=== PATIENT | female | born 1960 | race Caucasian/White ===

== ENCOUNTER 2016-07-23 13:56 | Emergency (ER) | payer MEDICAID ==
[2015-10-24 14:54] VITALS: BMI 24.0
[~2016-07-23 13:56] MED LIST: ALDACTAZIDE 25/1 TAB PO; ARAVA10 MG PO; BENADRYL25 MG PO; BENTYL 20 MG TA20 MG PO; BENTYL10 MG PO; CLARITIN-D1 TAB.SR1 PO; CLEOCIN HCL150 MG PO; COUMADIN5 MG PO; DEMEROL50 MG; DILAUDID4 MG PO; DILAUDID8 MG PO; ESTRACE 0.5 MG0.5 MG PO; ESTRACE1 MG PO; FLUTICASONE PRO16 GM NASAL; HYDROCHLOROTHIA25 MG PO; HYDROCODONE-APA1 TAB PO; IMURAN50 MG PO; NEURONTIN600 MG PO; NEXIUM20 MG PO; PHENERGAN25 M1 PO; PREVACID30 MG PO; PROTONIX40 MG PO; SOMA350 MG PO; VALTREX500 MG PO; VANCOMYCIN 750750 MG IV; ZANAFLEX4 MG PO; ZANTAC150 MG PO
[2016-07-23 15:12] LABS: BASOPHILS 0.3 % (0.0-2.0); EOSINOPHILS 3.4 % (0-7); HEMATOCRIT 34.2 % (36.0-48.0); HEMOGLOBIN 10.1 g/dL (12-16); IMMATURE GRANULOCYTES 0.1 % (0-5); LYMPHOCYTES 22.7 % (15-50); MCHC 29.5 g/dL (31.0-37.0); MCV 77.9 fL (80.0-100.0); MEAN PLATELET VOLUME 9.1 fL (7.4-10.4); MONOCYTES 6.9 % (2-11); NEUTROPHILS 66.6 % (40-80); RBC 4.39 10x6/uL (4.00-5.40); RDW 18.1 % (11.5-14.5); WBC 7.4 10x3/uL (4.8-10.8)
[2016-07-23 15:15] LABS: PLATELET COUNT 428 10x3/uL (130-400)
[2016-07-23 15:24] LABS: APPEARANCE CLEAR (CLEAR); BILIRUBIN NEGATIVE (NEGATIVE); COLOR YELLOW (YELLOW); GLUCOSE NEGATIVE (NEGATIVE); KETONE NEGATIVE (NEGATIVE); LEUKOCYTE ESTERASE NEGATIVE (NEGATIVE); NITRITE NEGATIVE (NEGATIVE); PROTEIN NEGATIVE (NEGATIVE); UROBILINOGEN NORMAL (NORMAL)
[2016-07-23 15:34] LABS: ALBUMIN 3.6 g/dL (3.4-5.0); ALKALINE PHOSPHATASE 159 U/L (46-116); ALT (SGPT) 35 U/L (10-68); BILIRUBIN - TOTAL 0.25 mg/dL (0.2-1.3); CALC OSMOLALITY 276 mosm/kg (275-300); CALCIUM 9.2 mg/dL (8.5-10.1); CARBON DIOXIDE 19.3 mmol/L (21.0-32.0); CHLORIDE - SERUM 105 mmol/L (98-107); CREATININE - SERUM 1.2 mg/dL (0.6-1.3); GLUCOSE 75 mg/dL (74-106); POTASSIUM - SERUM 3.1 mmol/L (3.5-5.1); SODIUM 140 mmol/L (136-145); UREA NITROGEN 11 mg/dL (7-18); eGFR NON AFRICAN AMERICAN 50 mL/min (90-120)
[2016-07-23 15:39] LABS: UDS - AMPHET NEGATIVE QUAL (NEGATIVE); UDS - BARB POSITIVE QUAL (NEGATIVE); UDS - BENZO POSITIVE QUAL (NEGATIVE); UDS - COCAINE NEGATIVE QUAL (NEGATIVE); UDS - METH NEGATIVE QUAL (NEGATIVE); UDS - OPIATE NEGATIVE QUAL (NEGATIVE); UDS - PCP NEGATIVE QUAL (NEGATIVE); UDS - THC NEGATIVE QUAL (NEGATIVE)
[2016-07-23 15:47] LABS: AMYLASE - SERUM 50 U/L (25-115); C-REACTIVE PROTEIN 5.2 mg/dL (0.0-0.9); LIPASE 154 U/L (73-393); PRO BNP 104 pg/mL (0-125); THYROID STIMULATING HORMONE 2.79 uIU/mL (0.36-3.74)
[2016-07-23 15:52] LABS: TROPONIN-I < 0.017 ng/mL (0.000-0.060)
[2016-08-24] MEDS ORDERED: HYSINGLA ER30 MG PO (08:26)
[2016-08-24] MEDS ORDERED: MAGNESIUM OXID250 MG PO (08:27)
[2016-08-24] MEDS ORDERED: VALIUM5 MG PO (08:28)
[2016-08-24] MEDS ORDERED: CORTEF10 MG PO (08:29)
== END 2016-07-23 21:10 | disposition home or self-care (01) ==
LOC: D.ER 13:56
PROVIDERS: Family Medicine
DX: R53.1 Weakness (principal); R11.10 Vomiting, unspecified; F45.9 Somatoform disorder, unspecified; D64.9 Anemia, unspecified; K21.9 Gastro-esophageal reflux disease without esophagitis; G40.909 Epilepsy, unspecified, not intractable, without status epilepticus

== ENCOUNTER 2016-08-27 11:11 | Inpatient (IN) | payer MEDICAID ==
[~2016-08-27] VITALS: Ht 162.6 cm; Wt 76.4 kg
[2016-08-27] VITALS (9 sets, daily range): BP systolic 128–177; BP diastolic 64–111; Ht 162.6 cm; Wt 76.4 kg
[~2016-08-27 11:11] MED LIST changes: +CORTEF10 MG PO; +HYSINGLA ER30 MG PO; +MAGNESIUM OXID250 MG PO; +VALIUM5 MG PO
[2016-08-27] MEDS ORDERED: OMEPRAZOLE20 M1 PO (11:58)
[2016-08-27 12:36] LABS: APPEARANCE HAZY (CLEAR); COLOR YELLOW (YELLOW); SPECIFIC GRAVITY 1.015 (1.005-1.020)
[2016-08-27 12:37] LABS: BACTERIA MODERATE /hpf (NONE SEEN); BILIRUBIN NEGATIVE (NEGATIVE); GLUCOSE NEGATIVE (NEGATIVE); KETONE NEGATIVE (NEGATIVE); LEUKOCYTE ESTERASE NEGATIVE (NEGATIVE); MUCUS <1+ /lpf (NONE SEEN); NITRITE NEGATIVE (NEGATIVE); PROTEIN NEGATIVE (NEGATIVE); RED CELLS - URINE 0-5 /hpf (0-5); UROBILINOGEN NORMAL (NORMAL); WHITE CELLS - URINE 0-5 /hpf (0-5)
[2016-08-27 12:38] LABS: HYALINE CAST 0-5 /lpf (NONE SEEN)
[2016-08-27 13:44] LABS: CALCIUM 8.6 mg/dL (8.5-10.1); CARBON DIOXIDE 28.3 mmol/L (21.0-32.0); POTASSIUM - SERUM 3.3 mmol/L (3.5-5.1)
[2016-08-27 13:45] LABS: APTT 25.4 SECONDS (22.8-39.4); INR 0.97 (0.85-1.17); PROTIME 12.7 SECONDS (11.6-15.0)
[2016-08-27 14:32] LABS: BASOPHILS 0.2 % (0.0-2.0); EOSINOPHILS 2.1 % (0-7); HEMATOCRIT 30.2 % (36.0-48.0); HEMOGLOBIN 8.7 g/dL (12-16); IMMATURE GRANULOCYTES 0.4 % (0-5); LYMPHOCYTES 24.5 % (15-50); MCH 22.4 pg (26.0-34.0); MCHC 28.8 g/dL (31.0-37.0); MCV 77.6 fL (80.0-100.0); MEAN PLATELET VOLUME 9.1 fL (7.4-10.4); MONOCYTES 5.3 % (2-11); NEUTROPHILS 67.5 % (40-80); PLATELET COUNT 505 10x3/uL (130-400); RBC 3.89 10x6/uL (4.00-5.40); RDW 18.3 % (11.5-14.5); WBC 9.1 10x3/uL (4.8-10.8)
--- NOTE | 2016-08-27 14:59 | NUR ---
[id number] DR. CRAIG LEAVES OR, DR. GARCIA IS PAGED FOR PORT PLACEMENT
--- NOTE | 2016-08-27 15:12 | NUR ---
DR. GARCIA STARTS PORT PLACEMENT
--- NOTE | 2016-08-27 16:08 | NUR ---
RECIEVED REPORT FROM MEHDI SANCHEZ.
--- NOTE | 2016-08-27 17:57 | NUR ---
PATIENT SAID SHE IS NOT ABLE TO TOLERATE HER PO MEDS AT THIS TIME. BUT STATED SHE WILL LET ME KNOW WHEN SHE CAN.
--- NOTE | 2016-08-27 19:30 | NUR ---
RECIEVED SHIFT REPORT. PT IS LYING IN BED. ALERT AND ORIENTED AND ABLE TO VERBALIZE NEEDS. IV IS PATENT AND FLUIDS ARE RUNNING PER ORDER. SCD'S ON. DRESSING TO LEFT SHOULDER C/D/I. SLING ON. ICE ON AT THIS TIME. PT STATES PAIN IS 4/10 WITH MEMBERSHIP DIRECTOR PUMP. PT IS AMBULATORY WITH ASSISTANCE. NO NEEDS ARE VERBALIZED AT THIS TIME. WILL CONTINUE TO MONITOR. SIDE RAILS ARE UP X 2. BED IS IN LOWEST POSITION. CALL LIGHT IS WITHIN REACH.
--- NOTE | 2016-08-27 20:58 | NUR ---
SHIFT ASSESSMENT COMPLETED. NIGHT MEDS GIVEN WITH NO PROBLEMS. NO NEEDS ARE VOICED. WILL MONITOR. SIDE RAILS X 2. BED LOW. CALL LIGHT IN REACH.
[2016-08-28 04:00] VITALS: BP 139/83
[2016-08-28 08:38] VITALS: BP 136/80
[2016-08-28 13:04] VITALS: BP 134/78
[2016-08-28 13:15] LABS: HEMATOCRIT 24.9 % (36.0-48.0); MCH 22.3 pg (26.0-34.0); MCHC 28.5 g/dL (31.0-37.0); MCV 78.3 fL (80.0-100.0); MEAN PLATELET VOLUME 8.5 fL (7.4-10.4); RBC 3.18 10x6/uL (4.00-5.40); RDW 18.2 % (11.5-14.5); WBC 8.3 10x3/uL (4.8-10.8)
[2016-08-28 13:26] LABS: HEMOGLOBIN 7.1 g/dL (12-16)
[2016-08-28 14:10] LABS: ANION GAP 12.4 mmol/L (8-16); CARBON DIOXIDE 28.6 mmol/L (21.0-32.0)
[2016-08-28 17:07] VITALS: BP 118/77
--- NOTE | 2016-08-28 19:30 | NUR ---
RECIEVED SHIFT REPORT. PT IS LYING IN BED. ALERT AND ORIENTED AND ABLE TO VERBALIZE NEEDS. IV IS PATENT AND BLOOD INFUSING AT THIS TIME. PT IS AMBULATORY BUT WAS INSTRUCTED TO CALL FOR ANY ASSISTANCE NEEDED. DRESSING TO LEFT SHOULDER C/D/I AND SLING ON. SCD'S ON. O2 @ 3 PER NASAL CANNULA. PT STATES PAIN IS 10/10. NO NEEDS ARE VERBALIZED AT THIS TIME. WILL CONTINUE TO MONITOR. SIDE RAILS ARE UP X 2. BED IS IN LOWEST POSITION. CALL LIGHT IS WITHIN REACH.
--- NOTE | 2016-08-28 20:55 | NUR ---
PRBC'S FINISHED AT THIS TIME AND TUBE FLUSHING. VSS. WILL MONITOR. SIDE RAILS X 2. BED LOW. CALL LIGHT IN REACH.
--- NOTE | 2016-08-28 21:03 | NUR ---
SHIFT ASSESSMENT COMPLETED. NIGHT MEDS GIVEN WITH NO PROBLEMS. PT C/O NAUSEA. ADMINISTERED PRESCRIBED PRN PHENERGAN PER ORDER. DENIES FURTHER NEEDS. WILL MONITOR. SIDE RAILS X 2. BED LOW. CALL LIGHT IN REACH.
[2016-08-29] VITALS: BP 133/70
--- NOTE | 2016-08-29 | NUR ---
GAVE BOLUS OF DILAUDID VIA CONSTRUCTION AND MAINTENANCE INSPECTOR PUMP PER ORDER, PER PT REQUEST FOR PAIN. WILL CONTINUE TO MONITOR FOR NEEDS.
[2016-08-29 04:00] VITALS: BP 128/69
--- NOTE | 2016-08-29 07:30 | NUR ---
REPORT RECEIVED FROM DAMPER WORKER NURSE. CALL LIGHT IN REACH.
--- NOTE | 2016-08-29 09:00 | NUR ---
ASSESSMENT COMPLETED. PERCOCET AND PHENERGAN PO WITH AM MEDS. REFUSES SCDs AT THE TIME. PASSWORD OBTAINED. CALL LIGHT IN REACH. WILL CONTINUE WITH PLAN OF CARE.
[2016-08-29 09:09] VITALS: BP 147/91
--- NOTE | 2016-08-29 11:10 | NUR ---
DILAUDID METAL FABRICATOR HELPER BOLUS GIVEN PER PATIENT REQUEST FOR BREAKTHROUGH PAIN.
[2016-08-29 11:46] LABS: HEMATOCRIT 29.3 % (36.0-48.0); MCH 23.8 pg (26.0-34.0); MCHC 29.4 g/dL (31.0-37.0); MEAN PLATELET VOLUME 8.9 fL (7.4-10.4); RBC 3.62 10x6/uL (4.00-5.40); RDW 17.9 % (11.5-14.5); WBC 7.5 10x3/uL (4.8-10.8)
[2016-08-29 11:50] LABS: CALCIUM 7.9 mg/dL (8.5-10.1); CARBON DIOXIDE 26.3 mmol/L (21.0-32.0); CHLORIDE - SERUM 110 mmol/L (98-107); CREATININE - SERUM 0.8 mg/dL (0.6-1.3); HEMOGLOBIN 8.6 g/dL (12-16); MCV 80.9 fL (80.0-100.0); POTASSIUM - SERUM 4.8 mmol/L (3.5-5.1); SODIUM 144 mmol/L (136-145); eGFR NON AFRICAN AMERICAN 79 mL/min (90-120)
[2016-08-29 12:07] LABS: CALC OSMOLALITY 287 mosm/kg (275-300); GLUCOSE 127 mg/dL (74-106); UREA NITROGEN 11 mg/dL (7-18)
[2016-08-29 13:06] VITALS: BP 145/89
--- NOTE | 2016-08-29 13:09 | NUR ---
PERCOCET PO PER C/O PAIN OF 8. FAMILY IB RROM. CALL LIGHT IN REACH.
--- NOTE | 2016-08-29 14:41 | NUR ---
PATIENT SITTING UP IN BED WITH NO COMPLAINTS AT THIS TIME. CLINICAL FACULTY AT BEDSIDE. CALL LIGHT WITHIN REACH.
--- NOTE | 2016-08-29 16:17 | NUR ---
PROTONIX AND NEURONTIN PO. DRSG TO INFUSAPORT CHANGED PER HOSPITAL POLICY USING STERILE TECHNIQUE.
[2016-08-29 16:32] VITALS: BP 144/88
--- NOTE | 2016-08-29 18:06 | NUR ---
NO CHANGES IN INITIAL ASSESSMENT. STILL REFUSES SCDs. CALL LIGHT IN REACH. WILL CONTINUE WITH PLAN OF CARE.
[2016-08-29 19:00] VITALS: BP 153/89
--- NOTE | 2016-08-29 19:00 | NUR ---
BEDSIDE REPORT RECEIVED AND CARE OF PT ASSUMED. PT LYING IN SEMI PATEL'S POSITION WATCHING TV. RIGHT IP ACCESSED AND PATENT WITH 1/2 NS INFUSING AT 30 ML / HR. O2 IN USE AT 3L VIA NC. CHILD PSYCHOLOGIST / DILAUDID IN USE FOR PAIN CONTROL. WILL MONITOR CLOSELY FOR NEEDS. CALL LIGHT WITHIN REACH.
--- NOTE | 2016-08-29 21:00 | NUR ---
GAVE BOLUS OF DILAUDID PER ORDER, VIA CODE OFFICIAL PUMP, PER PT REQUEST FOR PAIN. WILL CONTINUE TO MONITOR FOR NEEDS.
--- NOTE | 2016-08-29 21:49 | NUR ---
HS MEDICATIONS GIVEN TO INCLUDE PERCOCET PER PRN ORDER, PER REQUEST. WILL CONTINUE TO MONITOR FOR NEEDS. DRESSING ON LEFT SHOULDER CLEAN AND DRY.
[2016-08-30 04:00] VITALS: BP 124/77
[2016-08-30 05:36] LABS: HEMATOCRIT 29.8 % (36.0-48.0); HEMOGLOBIN 8.7 g/dL (12-16); MCH 23.8 pg (26.0-34.0); MCHC 29.2 g/dL (31.0-37.0); MCV 81.4 fL (80.0-100.0); MEAN PLATELET VOLUME 8.9 fL (7.4-10.4); RBC 3.66 10x6/uL (4.00-5.40); RDW 18.4 % (11.5-14.5); WBC 6.8 10x3/uL (4.8-10.8)
[2016-08-30 06:01] LABS: CALC OSMOLALITY 281 mosm/kg (275-300); CALCIUM 7.9 mg/dL (8.5-10.1); CARBON DIOXIDE 26.5 mmol/L (21.0-32.0); CHLORIDE - SERUM 108 mmol/L (98-107); CREATININE - SERUM 0.8 mg/dL (0.6-1.3); GLUCOSE 98 mg/dL (74-106); POTASSIUM - SERUM 4.6 mmol/L (3.5-5.1); SODIUM 142 mmol/L (136-145); UREA NITROGEN 11 mg/dL (7-18); eGFR NON AFRICAN AMERICAN 79 mL/min (90-120)
[2016-08-30 08:46] VITALS: BP 123/79
--- NOTE | 2016-08-30 09:00 | NUR ---
ASSESSMENT PER FLOW SHEET.PT WITHOUT DISTRESS.CALL LIGHT IN REACH
--- NOTE | 2016-08-30 11:00 | NUR ---
BOLUS ORDERED,SEE MAR
[2016-08-30 11:30] VITALS: BP 138/85
[2016-08-30 16:03] VITALS: BP 136/86
--- NOTE | 2016-08-30 17:40 | NUR ---
HAS REMAINED WITHOUT CHANGE FROM INITIAL ASSESSMENT THIS AM.CONT PLAN OF CARE
[2016-08-30 22:56] VITALS: BP 111/91
[2016-08-30 23:00] VITALS: BP 125/69
--- NOTE | 2016-08-31 07:30 | NUR ---
WALKING ROUNDS.ASSESSMENT PER FLOW SHEET.PT WITHOUT DISTRESS.DRESSING TO LEFT SHOULDER CDI,SLING IN PLACE.REQUEST PO PAIN MEDS WITH AM MEDS FOR POSSIBLE BREAK THROUGH PAIN CONTROL.CALL LIGHT IN REACH.
[2016-08-31 07:50] VITALS: BP 142/94
[2016-08-31] MEDS ORDERED: LEVAQUIN500 MG PO (09:53)
[2016-08-31] MEDS ORDERED: ROXICODONE15 MG PO (09:56)
--- NOTE | 2016-08-31 10:43 | NUR ---
LYING IN BED,WITHOUT DISTRESS.CALL LIGHT IN REACH
--- NOTE | 2016-08-31 11:30 | NUR ---
Patient Name: DONTE SORENSEN Admission Status: Elective Accout number: [id number] Admission Date: 08-27-2016 : 1960 Admission Diagnosis: Attending: ANA Current LOS: 4 Anticipated DC Date: 08-31-2016 Planned Disposition: Home Primary Insurance: MEDICAID [place] Discharge Planning Comments: CM MET WITH PATIENT REGARDING D/C NEEDS AND PLANS. PATIENT STATES SHE LIVES ALONE AND HER CAREGIVER (OLEG) WILL DRIVE HER HOME TODAY AT DISCHARGE. PATIENT STATED THERE ARE 7 STEPS W/RAILS TO ENTER HOME AND NO STAIRS INSIDE. PATIENTS PCP IS DR. COTA AND PHARMACY IS [facility]. PATIENT HAS A WALKER, WHEELCHAIR, BS COMMODE, AND SHOWER CHAIR AT HOME. PATIENT IS CURRENT WITH [facility] WITH [facility] 7 DAYS A WEEK FOR 5 HOURS A DAY. PATIENTS DAUGHTER (MU IS AN RN) AND CHECKS ON HER MOTHER OFTEN. CM WILL CONTINUE TO FOLLOW PATIENT WITH D/C NEEDS AND PLANS. PCP DR. [facility] ON [address]- [phone] MU (DAUGHTER) [phone] Microfilm Processor: Karina Kunz Is the patient Alert and Oriented? Yes 0 * How many steps to enter\exit or inside your home? 7 W/RAILS 0 * PCP DR. COTA 0 * [facility] * Preadmission Environment Home Alone 0 * ADLs Partial Dependent 0 * Partial ADLs (Assistance needed) Bathing Dressing Medication Management 0 * Equipment Bedside Commode Shower Chair Walker Wheelchair 0 Grand Total: 0
--- NOTE | 2016-08-31 11:52 | NUR ---
PORT FLUSHED PER PROTOCOLAND NEEDLE DCD.DRESSING CHANGE TO LEFT SHOULDER USING ASEPTIC TECH.DISCHARGE INSTRUCTIONS,STATES UNDERSTANDING.
--- NOTE | 2016-08-31 11:59 | NUR ---
CALLED RX FOR PHERGAN TO [facility] [phone]. #[phone], NO REFILLS PER .
--- NOTE | 2016-08-31 13:00 | NUR ---
LEFT UNIT VIA WHEELCHAIR
[2016-08-31 13:01] VITALS: BP 137/85
--- NOTE | 2016-09-07 13:21 | OP ---
PATIENT NAME: DONTE SORENSEN MEDICAL RECORD: [id number] :[birth year] LOCATION:[id number] ADMISSION DATE:08/27/16 SURGEON: DOMINGUEZ GARCIA MD DATE OF OPERATION: 08/27/2016 PREOPERATIVE DIAGNOSES: 1. Loosening left shoulder prosthesis. 2. Hypertension. 3. Epilepsy. 4. Gastroesophageal reflux disease. POSTOPERATIVE DIAGNOSES: 1. Loosening left shoulder prosthesis. 2. Hypertension. 3. Epilepsy. 4. Gastroesophageal reflux disease. PROCEDURE: 1. Right subclavian vein PowerPort exchange. 2. Fluoroscopic interpretation. SURGEON: Dominguez Garcia MD. REPORT OF PROCEDURE: The patient's right chest was prepped and draped in sterile fashion. A skin incision was made overlying the indwelling right subclavian vein port. This port was freed up from its Prolene attachments and the catheter was transected. A guidewire was advanced through the port with ease and the port was removed. With the catheter and port removed, we used fluoroscopy to make sure the wire was in good position in the venous system, which it was. A new catheter was then sutured down to the pectoral fascia using interrupted 2-0 Prolenes times 2. The catheter was cut with a beveled tip at 22 cm. The dilator trocar device was attempted to place over the wire, but there was such an acute angle that I eventually had to just place the dilator down and remove the indwelling wire and replace it with an Amplatz wire. Over this Amplatz wire, I was able to place the dilator trocar device. The wire and dilator were removed and the catheter tip was advanced through the trocar with ease. The trocar was then removed, the catheter tip resting in good position in the right atrial superior vena caval junction. The catheter aspirated nonpulsatile dark blood and flushed easily with heparinized saline. The subcutaneous tissues were reapproximated with interrupted 3-0 Vicryl and the skin was closed with running subcutaneous 5-0 Monocryl. We then accessed the port and placed a dressing. COMPLICATIONS: None. CONDITION: Stable. ANESTHESIA: General endotracheal. BLOOD LOSS: Minimal. TRANSINT:[id number] Voice Confirmation ID: [id number] DOCUMENT ID: [id number] OPERATIVE REPORT [id number] EDUDONTE Merritt DOMINGUEZ GARCIA MD at 1321 CC: [id number] DICTATION DATE: 08/27/16 1543 SLABBER: 08/27/[id number] DIS IN 08/31/16 [place] [id number] [facility] [place] [address]
[2016-09-14 17:11] LABS: AEROBE ID Final report (())
== END 2016-08-31 13:00 | disposition home or self-care (01) | DRG 496 ==
LOC: D.OPS 11:11 → D.MS 11:15 → D.OPS 12:45 → D.MS 14:53 → D.OPS 15:45 → D.MS 16:11 → D.OPS 16:12 → D.MS 16:12 → D.OPS 16:30 → EDSTATUS 18:30 → D.PAN 18:30 → D.MS 08-31 13:00
PROVIDERS: Surgery; ADMIT Orthopaedic Surgery
PROC: B5171ZA Fluoroscopy of Left Subclavian Vein using Low Osmolar Contrast, Guidance (ICD-10-PCS; 2016-08-27)
PROC: 0RHK08Z Insertion of Spacer into Left Shoulder Joint, Open Approach (ICD-10-PCS; 2016-08-27)
PROC: 05PY33Z Removal of Infusion Device from Upper Vein, Percutaneous Approach (ICD-10-PCS; principal; 2016-08-27 12:45)
PROC: 05H633Z Insertion of Infusion Device into Left Subclavian Vein, Percutaneous Approach (ICD-10-PCS; 2016-08-27 12:45)
PROC: 0RPK0JZ Removal of Synthetic Substitute from Left Shoulder Joint, Open Approach (ICD-10-PCS; 2016-08-27 12:45)
DX: T84.59XA Infection and inflammatory reaction due to other internal joint prosthesis, initial encounter (principal); D62 Acute posthemorrhagic anemia; Y83.8 Other surgical procedures as the cause of abnormal reaction of the patient, or of later complication, without mention of misadventure at the time of the procedure; I10 Essential (primary) hypertension; G40.909 Epilepsy, unspecified, not intractable, without status epilepticus; K21.9 Gastro-esophageal reflux disease without esophagitis; T84.038A Mechanical loosening of other internal prosthetic joint, initial encounter; Z86.73 Personal history of transient ischemic attack (TIA), and cerebral infarction without residual deficits; M06.9 Rheumatoid arthritis, unspecified

== ENCOUNTER 2016-10-05 07:52 | Emergency (ER) | payer MEDICAID ==
[2016-08-27 20:15] VITALS: BMI 28.9
[~2016-10-05 07:52] MED LIST changes: +LEVAQUIN500 MG PO; +OMEPRAZOLE20 M1 PO; +ROXICODONE15 MG PO
[2016-10-05 08:50] LABS: BASOPHILS 0.2 % (0-2); EOSINOPHILS 1.5 % (0-7); HEMATOCRIT 37.6 % (36.0-48.0); HEMOGLOBIN 11.5 g/dL (12-16); IMMATURE GRANULOCYTES 0.5 % (0-5); LYMPHOCYTES 31.4 % (15-50); MCH 24.1 pg (26.0-34.0); MCHC 30.6 g/dL (31.0-37.0); MCV 78.8 fL (80.0-100.0); MEAN PLATELET VOLUME 8.9 fL (7.4-10.4); MONOCYTES 5.9 % (2-11); NEUTROPHILS 60.5 % (40-80); PLATELET COUNT 420 10x3/uL (130-400); RBC 4.77 10x6/uL (4.00-5.40); RDW 19.5 % (11.5-14.5); WBC 9.3 10x3/uL (4.8-10.8)
[2016-10-05 09:09] LABS: ALBUMIN 3.9 g/dL (3.4-5.0); ALKALINE PHOSPHATASE 146 U/L (46-116); ALT (SGPT) 15 U/L (10-68); BILIRUBIN - TOTAL 0.33 mg/dL (0.2-1.3); CALC OSMOLALITY 279 mosm/kg (275-300); CALCIUM 9.2 mg/dL (8.5-10.1); CARBON DIOXIDE 23.2 mmol/L (21.0-32.0); CHLORIDE - SERUM 105 mmol/L (98-107); CREATININE - SERUM 0.9 mg/dL (0.6-1.3); GLUCOSE 91 mg/dL (74-106); POTASSIUM - SERUM 3.4 mmol/L (3.5-5.1); PROTEIN - SERUM 7.8 g/dL (6.4-8.2); SODIUM 141 mmol/L (136-145); UREA NITROGEN 10 mg/dL (7-18); eGFR NON AFRICAN AMERICAN 69 mL/min (90-120)
[2016-10-05 09:18] LABS: TROPONIN-I < 0.017 ng/mL (0.000-0.060)
[2016-10-05 10:42] LABS: APPEARANCE HAZY (CLEAR); BILIRUBIN NEGATIVE (NEGATIVE); COLOR YELLOW (YELLOW); GLUCOSE NEGATIVE (NEGATIVE); KETONE MODERATE mg/dL (NEGATIVE); LEUKOCYTE ESTERASE NEGATIVE (NEGATIVE); NITRITE NEGATIVE (NEGATIVE); PROTEIN NEGATIVE (NEGATIVE); SPECIFIC GRAVITY 1.025 (1.005-1.020); UROBILINOGEN NORMAL (NORMAL)
[2016-10-05 10:45] LABS: BACTERIA MODERATE /hpf (NONE SEEN); MUCUS <1+ /lpf (NONE SEEN); WHITE CELLS - URINE 0-5 /hpf (0-5)
== END 2016-10-05 12:12 | disposition home or self-care (01) ==
LOC: D.ER 07:52
PROVIDERS: Emergency Medicine
DX: R55 Syncope and collapse (principal); E86.0 Dehydration; K21.9 Gastro-esophageal reflux disease without esophagitis; G40.909 Epilepsy, unspecified, not intractable, without status epilepticus

== ENCOUNTER → 2016-10-24 15:12 | Outpatient (CLI) | payer MEDICAID ==
[2016-08-27 20:15] VITALS: BMI 28.9
[2016-10-24 16:41] LABS: BASOPHILS 0.4 % (0-2); EOSINOPHILS 1.2 % (0-7); HEMATOCRIT 34.3 % (36.0-48.0); HEMOGLOBIN 10.5 g/dL (12-16); IMMATURE GRANULOCYTES 0.2 % (0-5); LYMPHOCYTES 30.7 % (15-50); MCH 24.4 pg (26.0-34.0); MCHC 30.6 g/dL (31.0-37.0); MCV 79.8 fL (80.0-100.0); MEAN PLATELET VOLUME 9.6 fL (7.4-10.4); MONOCYTES 3.6 % (2-11); NEUTROPHILS 63.9 % (40-80); RDW 20.8 % (11.5-14.5); WBC 8.6 10x3/uL (4.8-10.8)
[2016-10-24 17:01] LABS: PLATELET COUNT 335 10x3/uL (130-400)
[2016-10-24 17:44] LABS: ERYTHROCYTE SEDIMENTATION RATE 21 mm/hr (0-30)
== END | disposition home or self-care (01) ==
LOC: D.LAB 15:12
PROVIDERS: Orthopaedic Surgery
DX: M00.9 Pyogenic arthritis, unspecified (principal)

== ENCOUNTER 2016-11-21 16:55 | Emergency (ER) | payer MEDICAID ==
[2016-08-27 20:15] VITALS: BMI 28.9
[2016-11-21 18:36] LABS: BASOPHILS 0.3 % (0-2); EOSINOPHILS 2.2 % (0-7); HEMATOCRIT 32.4 % (36.0-48.0); HEMOGLOBIN 9.6 g/dL (12-16); IMMATURE GRANULOCYTES 0.3 % (0-5); LYMPHOCYTES 28.9 % (15-50); MCH 23.4 pg (26.0-34.0); MCHC 29.6 g/dL (31.0-37.0); MEAN PLATELET VOLUME 9.1 fL (7.4-10.4); MONOCYTES 4.2 % (2-11); NEUTROPHILS 64.1 % (40-80); PLATELET COUNT 345 10x3/uL (130-400); RDW 19.4 % (11.5-14.5); WBC 7.7 10x3/uL (4.8-10.8)
[2016-11-21 18:54] LABS: ANION GAP 16.5 mmol/L (8-16); CALCIUM 8.4 mg/dL (8.5-10.1); CARBON DIOXIDE 20.7 mmol/L (21.0-32.0); POTASSIUM - SERUM 3.2 mmol/L (3.5-5.1)
== END 2016-11-21 20:30 | disposition home or self-care (01) ==
LOC: D.ER 16:55
PROVIDERS: Nurse Practitioner Acute Care
DX: M25.512 Pain in left shoulder (principal); S40.012A Contusion of left shoulder, initial encounter; W19.XXXA Unspecified fall, initial encounter; M06.9 Rheumatoid arthritis, unspecified; R56.9 Unspecified convulsions

== ENCOUNTER 2016-11-25 12:42 | Inpatient (IN) | payer MEDICAID ==
[~2016-11-25] VITALS: Ht 162.6 cm; Wt 79.7 kg
[2016-11-25 14:00] LABS: BASOPHILS 0.1 % (0-2); EOSINOPHILS 2.5 % (0-7); HEMATOCRIT 29.4 % (36.0-48.0); HEMOGLOBIN 8.6 g/dL (12-16); IMMATURE GRANULOCYTES 0.1 % (0-5); LYMPHOCYTES 18.2 % (15-50); MCH 23.6 pg (26.0-34.0); MCHC 29.3 g/dL (31.0-37.0); MCV 80.5 fL (80.0-100.0); MEAN PLATELET VOLUME 9.3 fL (7.4-10.4); MONOCYTES 3.4 % (2-11); NEUTROPHILS 75.7 % (40-80); PLATELET COUNT 380 10x3/uL (130-400); RBC 3.65 10x6/uL (4.00-5.40); RDW 19.7 % (11.5-14.5); WBC 7.7 10x3/uL (4.8-10.8)
[2016-11-25 14:12] LABS: ALBUMIN 3.2 g/dL (3.4-5.0); ANION GAP 14.8 mmol/L (8-16); BILIRUBIN - TOTAL 0.2 mg/dL (0.2-1.3); C-REACTIVE PROTEIN 13.1 mg/dL (0.0-0.9); CALCIUM 9.6 mg/dL (8.5-10.1); CARBON DIOXIDE 25.2 mmol/L (21.0-32.0); CREATININE - SERUM 0.9 mg/dL (0.6-1.3); PROTEIN - SERUM 7.2 g/dL (6.4-8.2)
[2016-11-25] MEDS ORDERED: VITAMIN B-2100 MG PO (19:59)
[2016-11-25] MEDS ORDERED: HYDROCODONE-APA1 TAB PO (19:59)
[2016-11-25] MEDS ORDERED: BUTALB-APAP-CA1 EACH PO (20:01)
[2016-11-25] MEDS ORDERED: CO Q-10100 MG PO (20:03)
[2016-11-25 22:26] VITALS: BP 172/110; BMI 29.2
[2016-11-26 00:55] VITALS: BP 167/104
--- NOTE | 2016-11-26 05:29 | NUR ---
PATIENT HAS BEEN MANIC THROUGHOUT THE NIGHT. SHE STATED THAT SHE WOULD RATHER HAVE HER DILADID ALL AT ONCE INSTEAD OF VIA THE PUMP, SHE WANTS PHENERGAN WITH HER DILADID BECAUSE IT WORKS BETTER, AND IF POSSIBLE HER VALIUM IN HER IV. SHE HAS BEEN STABLE AND TOLERATING PO WITH NO DIFFICULTY WHILE STATING SHE IS NAUSEATED SOME.
[2016-11-26 05:55] VITALS: BP 177/111
--- NOTE | 2016-11-26 07:58 | NUR ---
CO PAIN. BOLUS OF 0.4 MG GVIEN ORDERED. WITNESSED BY MEHDI WEBSTER.
[2016-11-26 08:00] VITALS: BP 179/109
[2016-11-26 11:47] VITALS: BP 169/103
--- NOTE | 2016-11-26 12:03 | NUR ---
BOLUS DOSE OF 0.4MG GIVEN VIA DIRECTOR TELEHEALTH PER PTS REQUEST. WITNESSED BY David TRIVEDI RN.
[2016-11-26 15:51] LABS: BASOPHILS 0.1 % (0-2); EOSINOPHILS 0 % (0-7); HEMOGLOBIN 8.6 g/dL (12-16); IMMATURE GRANULOCYTES 0.4 % (0-5); LYMPHOCYTES 14.9 % (15-50); MCH 23.6 pg (26.0-34.0); MCHC 29.7 g/dL (31.0-37.0); MCV 79.7 fL (80.0-100.0); MEAN PLATELET VOLUME 9.3 fL (7.4-10.4); MONOCYTES 1.3 % (2-11); NEUTROPHILS 83.3 % (40-80); RBC 3.64 10x6/uL (4.00-5.40); RDW 19.8 % (11.5-14.5)
[2016-11-26 15:52] LABS: PLATELET COUNT 472 10x3/uL (130-400); WBC 11.1 10x3/uL (4.8-10.8)
[2016-11-26 16:00] VITALS: BP 145/93
[2016-11-26 16:01] LABS: ALBUMIN 3.5 g/dL (3.4-5.0); ANION GAP 16.4 mmol/L (8-16); BILIRUBIN - TOTAL 0.18 mg/dL (0.2-1.3); CALCIUM 8.9 mg/dL (8.5-10.1); CARBON DIOXIDE 24.6 mmol/L (21.0-32.0); CREATININE - SERUM 0.9 mg/dL (0.6-1.3); PROTEIN - SERUM 7.3 g/dL (6.4-8.2)
[2016-11-26 16:32] LABS: % SATURATION 16 % (15-55); IRON 70 ug/dl (35-150); TOTAL IRON BIND CAPACITY 421 ug/dl (260-445); UNSAT IRON BIND CAPACITY 351 ug/dl (150-375)
--- NOTE | 2016-11-26 19:43 | NUR ---
RECEIVED REPORT, PT DENIES ANY NEEDS AT THIS TIME, BED IS LOW, SRX2, CALL LIGHT IN REACH, WILL CONTINUE PLAN OF CARE
[2016-11-26 20:16] VITALS: BP 171/108
--- NOTE | 2016-11-26 21:49 | NUR ---
DILUDID BOLUS 0.6MG GIVEN
[2016-11-27 00:15] VITALS: BP 169/115
--- NOTE | 2016-11-27 03:04 | NUR ---
ASSESSMENT COMPLETE, SEE FLOWSHEET, PT IS ASKING WHEN ITS TIME FOR BOLUS, TOLD HER IN AN HOUR, BED IS LOW, SRX2, CALL LIGHT IN REACH, WILL CONTINUE TO MONITOR
--- NOTE | 2016-11-27 03:54 | NUR ---
GAVE BOLUS 0.6MG DIDULID, WILL MONITOR
[2016-11-27 05:15] VITALS: BP 168/112
[2016-11-27 05:53] LABS: BASOPHILS 0.1 % (0-2); EOSINOPHILS 0 % (0-7); HEMATOCRIT 29.2 % (36.0-48.0); HEMOGLOBIN 8.4 g/dL (12-16); MCH 23.2 pg (26.0-34.0); MCHC 28.8 g/dL (31.0-37.0); MCV 80.7 fL (80.0-100.0); MEAN PLATELET VOLUME 9.5 fL (7.4-10.4); MONOCYTES 1.9 % (2-11); PLATELET COUNT 492 10x3/uL (130-400); RBC 3.62 10x6/uL (4.00-5.40); RDW 19.8 % (11.5-14.5); WBC 11.1 10x3/uL (4.8-10.8)
[2016-11-27 06:16] LABS: ALBUMIN 3.3 g/dL (3.4-5.0); ANION GAP 15.3 mmol/L (8-16); BILIRUBIN - TOTAL 0.15 mg/dL (0.2-1.3); CALCIUM 8.7 mg/dL (8.5-10.1); CARBON DIOXIDE 24.7 mmol/L (21.0-32.0); PROTEIN - SERUM 7.5 g/dL (6.4-8.2)
--- NOTE | 2016-11-27 07:00 | NUR ---
RECEIVED REPORT. ASSUMED CARE OF PATIENT. CALL LIGHT WITHIN REACH. PATIENT SITTING IN BED WITH EYES OPEN, ATTENTION TOWARD TELEVISION. REQUESTING BOLUS AT THIS TIME. COMPLAIN OF ARMS HURTING. DENIES ANY FURTHER NEEDS. NO DISTRESS.
[2016-11-27 07:58] VITALS: BP 161/97
--- NOTE | 2016-11-27 08:12 | NUR ---
BOLUS ADMINISTERED VIA DEGREASING SOLUTION RECLAIMER AT THIS TIME. NO DISTRESS
[2016-11-27 08:17] LABS: FOLATE (FOLIC ACID) - SERUM 8.6 ng/mL (>3.0)
--- NOTE | 2016-11-27 12:00 | NUR ---
UP IN ROOM AMBULATING WITH PT. BOLUS GIVEN.
[2016-11-27 14:19] VITALS: Ht 162.6 cm; Wt 79.7 kg
[2016-11-27 17:54] VITALS: BP 118/82
--- NOTE | 2016-11-27 19:25 | NUR ---
RECEIVED REPORT, ASSUMED CARE OF PT, PT DENIES ANY NEEDS AT THIS TIME, BED IS LOW, SRX2, CALL LIGHT IN REACH, WILL CONTINUE PLAN OF CARE
[2016-11-27 19:55] VITALS: BP 116/108
--- NOTE | 2016-11-27 22:10 | NUR ---
GAVE BOLUS DIDULID 0.6
--- NOTE | 2016-11-27 23:23 | NUR ---
REPLACED DIDULID TUBE
[2016-11-28 00:48] VITALS: BP 122/70; BP 149/106
--- NOTE | 2016-11-28 02:00 | NUR ---
ASSESSMENT COMPLETE, SEES FLOWSHEET, PT IS SLEEPING, BED IS LOW, SRX2, CALL LIGHT IN REACH, WILL CONTINUE TO MONITOR
--- NOTE | 2016-11-28 04:26 | NUR ---
GAVE A BOLUS 0.6MG DIDULID
[2016-11-28 04:52] VITALS: BP 193/115
[2016-11-28 05:48] LABS: BASOPHILS 0.5 % (0-2); EOSINOPHILS 0.1 % (0-7); HEMATOCRIT 30.4 % (36.0-48.0); HEMOGLOBIN 8.8 g/dL (12-16); IMMATURE GRANULOCYTES 6.4 % (0-5); LYMPHOCYTES 17.6 % (15-50); MCH 23.4 pg (26.0-34.0); MCHC 28.9 g/dL (31.0-37.0); MCV 80.9 fL (80.0-100.0); MEAN PLATELET VOLUME 9.8 fL (7.4-10.4); MONOCYTES 4.6 % (2-11); NEUTROPHILS 70.8 % (40-80); PLATELET COUNT 550 10x3/uL (130-400); RBC 3.76 10x6/uL (4.00-5.40)
[2016-11-28 06:06] LABS: WBC 15.1 10x3/uL (4.8-10.8)
[2016-11-28 06:24] LABS: ALBUMIN 3.1 g/dL (3.4-5.0); ALKALINE PHOSPHATASE 159 U/L (46-116); ALT (SGPT) 70 U/L (10-68); BILIRUBIN - TOTAL 0.13 mg/dL (0.2-1.3); CALC OSMOLALITY 289 mosm/kg (275-300); CALCIUM 8.6 mg/dL (8.5-10.1); CARBON DIOXIDE 24.6 mmol/L (21.0-32.0); CHLORIDE - SERUM 107 mmol/L (98-107); CREATININE - SERUM 0.8 mg/dL (0.6-1.3); GLUCOSE 145 mg/dL (74-106); POTASSIUM - SERUM 3.5 mmol/L (3.5-5.1); PROTEIN - SERUM 7.2 g/dL (6.4-8.2); SODIUM 142 mmol/L (136-145); UREA NITROGEN 23 mg/dL (7-18); eGFR NON AFRICAN AMERICAN 79 mL/min (90-120)
--- NOTE | 2016-11-28 07:29 | NUR ---
AM ROUNDS - PT IS AWAKE IN BED. USER EXPERIENCE ARCHITECT WITH DILAUDID. INFUSAPORT TO RIGHT CHEST WITH NS @ 30CC/HR. BED AT LOWEST POSITION, SIDE RAILS UP X2, CALL MOODY IN USE/REACH. NO NEEDS AT THIS TIME. WILL CONTINUE TO MONITOR
[2016-11-28 08:57] VITALS: BP 182/113
[2016-11-28 12:00] VITALS: BP 180/120
[2016-11-28 16:00] VITALS: BP 187/111
--- NOTE | 2016-11-28 19:30 | NUR ---
RECEIVED REPORT, ASSUMED CARE OF PT, UP TO RESTROOM, DENIES ANY NEEDS AT THIS TIME, WILL CONTINUE PLAN OF CARE
[2016-11-28 20:00] VITALS: BP 176/116
--- NOTE | 2016-11-28 22:39 | NUR ---
GAVE BOLUS 0.6 DIDULID
[2016-11-29] VITALS: BP 170/97
--- NOTE | 2016-11-29 03:54 | NUR ---
ASSESSMENT COMPLETE, SEE FLOWSHEET, PT SLEEPING ON BACK, BED IS LOW, SRX2,CALL LIGHT IN REACH, WILL CONTINUE PLAN OF CARE
[2016-11-29 04:00] VITALS: BP 169/99
[2016-11-29 05:39] LABS: BASOPHILS 0.3 % (0-2); EOSINOPHILS 0.1 % (0-7); HEMOGLOBIN 8.3 g/dL (12-16); IMMATURE GRANULOCYTES 5.5 % (0-5); LYMPHOCYTES 15.4 % (15-50); MCH 24.2 pg (26.0-34.0); MCHC 29.6 g/dL (31.0-37.0); MCV 81.6 fL (80.0-100.0); MEAN PLATELET VOLUME 9.7 fL (7.4-10.4); MONOCYTES 5.2 % (2-11); NEUTROPHILS 73.5 % (40-80); PLATELET COUNT 536 10x3/uL (130-400); RBC 3.43 10x6/uL (4.00-5.40); RDW 20.2 % (11.5-14.5); WBC 14.4 10x3/uL (4.8-10.8)
[2016-11-29 05:59] LABS: ALBUMIN 3.1 g/dL (3.4-5.0); ANION GAP 14.6 mmol/L (8-16); BILIRUBIN - TOTAL 0.19 mg/dL (0.2-1.3); CALCIUM 7.9 mg/dL (8.5-10.1); CARBON DIOXIDE 22.8 mmol/L (21.0-32.0); POTASSIUM - SERUM 3.4 mmol/L (3.5-5.1); PROTEIN - SERUM 6.7 g/dL (6.4-8.2)
--- NOTE | 2016-11-29 07:29 | NUR ---
AM ROUNDS - PT IS AWAKE AND ALERT IN BED. SIDE RAILS UP X2, BED AT LOWEST POSITION, CALL MOODY IN USE/REACH. IV TO RIGHT CHEST INFUSAPORT NS @ 30CC/HR. NO FUTHER NEEDS AT THIS TIME. WILL CONTINUE TO MONITOR
[2016-11-29 08:00] VITALS: BP 175/119
[2016-11-29 12:17] VITALS: BP 181/110
--- NOTE | 2016-11-29 13:21 | NUR ---
Nutrition follow-up: Diet: low sodium PO intake ~75% of meals Labs reviewed +BM RDN following.
--- NOTE | 2016-11-29 15:49 | NUR ---
Patient Name: DONTE SORENSEN Admission Status: ER Accout number: [id number] Admission Date: 11-25-2016 : 1960 Admission Diagnosis:PAIN IN RIGHT SHOULDER Attending: ZOHAIB Current LOS: 4 Anticipated DC Date: Planned Disposition: Home Primary Insurance: MEDICAID [place] Discharge Planning Comments: CM MET WITH PATIENT TO DISCUSS DISCHARGE PLANNING/NEEDS. PATIENT STATED THAT SHE LIVES AT HOME ALONE WITH HER DAUGHTER HELPING SOME (MARU SORENSEN) AND THAT SHE RECEIVES CARE GIVERS FROM [facility] 7 DAYS A WEEK. SHE STATED THE CAREGIVERS ASSIST WITH COOKING, LIGHT HOUSEWORK, GROCERY SHOPPING, BATHING, DRESSING AND TOLIETING. DON HAS BSC, HOSPITAL BED, A WALK IN TUB (" SHOWN ON TV"), A ROLLING WALKER WITH A SEAT AND A REGULAR WALKER, AND A WHEELCHAIR. SHE HAD ASKED IF WE COULD ASSIST HER WITH GETTING THINGS TO HELP OPEN BOTTLES AND CANS SO THAT SHE WASN'T DEPENDENT ON OTHERS. EXPLAINED THAT THESE ITEMS ARE EASILY PURCHASED AT MOST DRUG STORES AND THAT [facility] MAY EVEN HAVE THEM FOR PURCHASE. DON THEN ASKED IF WE COULD ASSIST IN GETTING HER A BUTT NENA (THIS IS THE NAME OF A DEVICE THAT IS USED TO WIPE YOURSELF AFTER USING THE BATHROOM) SINCE BOTH OF HER WRIST HAVE BEEN FUSED AND SHE HAS A HARD TIME. EXPLAINED THAT I DIDN'T THINK THAT THIS WAS AN ITEM WE COULD HELP HER GET, BUT I WOULD SEE. SPOKE WITH DR ARMSTRONG ABOUT THIS AND HE SAID NO. THERE HAS BEEN TALK (BY DR ARMSTRONG) ABOUT INTERMITTENTLY PUTTING HER IN A SNF UNIT, BUT PATIENT HAS VERBILIZED A NO TO THIS PLAN. SHE CURRENTLY DENIES ANY SPECIFIC NEEDS AT DISCHARGE, BUT HAS STATED THAT SHE WILL LET ME KNOW IF THIS CHANGES. CM WILL CONTINUE TO FOLLOW AND ASSIST NEEDED. Brand Communications Manager: Sandi Gunter Is the patient Alert and Oriented? Yes * How many steps to enter\\exit or inside your home? 7-10, RAIL * PCP [facility], WAS SET TO MEET WITH THEM THE DAY SHE WAS ADMITTED INTO THE HOSPITAL. SHE SAID THAT SHE USE TO USE [facility]. * [facility]acy [facility] [address] * Preadmission Environment Home Alone * ADLs Partial Dependent * Partial ADLs (Assistance needed) Bathing Dressing Toileting * Equipment Bedside Commode Hospital Bed Walker Wheelchair * List name and contact numbers for known caregivers / representatives who currently or will assist patient after discharge: MU SORENSEN, DAUGHTER, [phone] * Community resources currently utilized Other * Please name any agencies selected above. [facility] * Additional services required to return to the preadmission environment? No * Can the patient safely return to the preadmission environment? Yes * Has this patient been hospitalized within the prior 30 days at any hospital? No
[2016-11-29 16:36] VITALS: BP 180/101
[2016-11-29 19:00] VITALS: BP 183/111
--- NOTE | 2016-11-29 19:30 | NUR ---
RECEIVED REPORT, ASSUMED CARE OF PT, PT DENIES ANY NEEDS, BED IS LOW, SRX2, CALL LIGHT IN REACH, WILL CONTINUE PLAN OF CARE
[2016-11-30] VITALS: BP 183/99
--- NOTE | 2016-11-30 01:01 | NUR ---
CALL LIGHT IN REACH, WILL CONTINUE WITH PLAN OF CARE.
[2016-11-30 04:00] VITALS: BP 136/97
[2016-11-30 05:48] LABS: BASOPHILS 0.3 % (0-2); EOSINOPHILS 0 % (0-7); HEMATOCRIT 28.9 % (36.0-48.0); HEMOGLOBIN 8.7 g/dL (12-16); IMMATURE GRANULOCYTES 4.4 % (0-5); LYMPHOCYTES 16.3 % (15-50); MCH 24.6 pg (26.0-34.0); MCHC 30.1 g/dL (31.0-37.0); MCV 81.6 fL (80.0-100.0); MEAN PLATELET VOLUME 9.7 fL (7.4-10.4); MONOCYTES 4.3 % (2-11); NEUTROPHILS 74.7 % (40-80); PLATELET COUNT 539 10x3/uL (130-400); RBC 3.54 10x6/uL (4.00-5.40); RDW 20.2 % (11.5-14.5); WBC 13.1 10x3/uL (4.8-10.8)
[2016-11-30 06:13] LABS: ALBUMIN 3.1 g/dL (3.4-5.0); ANION GAP 15.9 mmol/L (8-16); BILIRUBIN - TOTAL 0.2 mg/dL (0.2-1.3); CARBON DIOXIDE 24.8 mmol/L (21.0-32.0); CREATININE - SERUM 0.9 mg/dL (0.6-1.3); POTASSIUM - SERUM 3.7 mmol/L (3.5-5.1); PROTEIN - SERUM 6.7 g/dL (6.4-8.2)
--- NOTE | 2016-11-30 07:25 | NUR ---
SHIFT ROUNDS - PT IN BED AND APPEARS TO BE SLEEPING WITH EQUAL AND NON LABORED BREATHING. BED AT LOWEST POSITION, CALL MOODY IN USE/REACH, SIDE RAILS UP X2. IV TO RIGHT CHEAST INFUSAPORT, NS AT 30CC/HR AND SHEET PILE DRIVER OPERATOR DILAUDID. WILL CONTINUE TO MONITOR
[2016-11-30 08:11] VITALS: BP 182/125
[2016-11-30 12:08] VITALS: BP 199/116
--- NOTE | 2016-11-30 15:13 | NUR ---
Nutrition Follow Up: Pt is eating 61% meal avg on an AHA diet. Wt stable. +BM 11/29/16. Meds and labs reviewed. Pt with fair po intake. Rec continue current diet. RD will continue to monitor pt progress.
[2016-11-30 15:17] VITALS: BP 167/112
--- NOTE | 2016-11-30 18:39 | NUR ---
PT IN BED FINNISHED DINNER. PT HAS NO NEEDS AT THIS TIME. WILL CONTINUE TO MONITOR
[2016-11-30 19:00] VITALS: BP 194/104
--- NOTE | 2016-11-30 19:51 | NUR ---
RECEIVED REPORT, WILL ASSUME CARE OF PT, PT TALKING ON PHONE, BED IS LOW, SRX2, CALL LIGHT IN REACH, WILL CONTINUE PLAN OF CARE
--- NOTE | 2016-11-30 20:23 | NUR ---
GAVE A BOLUS DIDULID 0.6. WILL CONTINUE TO MONITOR
[2016-12-01 04:00] VITALS: BP 156/102
--- NOTE | 2016-12-01 04:01 | NUR ---
ASSESSMENT COMPLETE, SEE FLOWSHEET, PT SLEEPING, BED IS LOW, SRX2,CALL LIGHT IN REACH, WILL CONTINUE PLAN OF CARE
--- NOTE | 2016-12-01 04:21 | NUR ---
BOLUS GIVEN 0.6 DIDULID
[2016-12-01 05:04] LABS: BASOPHILS 0.1 % (0-2); EOSINOPHILS 0 % (0-7); HEMATOCRIT 29.5 % (36.0-48.0); HEMOGLOBIN 8.4 g/dL (12-16); LYMPHOCYTES 16.5 % (15-50); MCH 23.6 pg (26.0-34.0); MCHC 28.5 g/dL (31.0-37.0); MCV 82.9 fL (80.0-100.0); MEAN PLATELET VOLUME 9.8 fL (7.4-10.4); MONOCYTES 4.8 % (2-11); NEUTROPHILS 74.6 % (40-80); PLATELET COUNT 454 10x3/uL (130-400); RBC 3.56 10x6/uL (4.00-5.40); WBC 11.1 10x3/uL (4.8-10.8)
[2016-12-01 08:00] VITALS: BP 171/106
--- NOTE | 2016-12-01 08:06 | NUR ---
SHIFT ASSESSMENT COMPLETE. A/O X 4. LUNG SOUNDS ASCULTATED. CLEAR BILATERAL LUNG SCOTT. S1S2. C/O PAIN LEVEL AT 8. WILL PROVIDE NURSING INTERVENTION TO DECREASE PAIN LEVEL. NO OTHER NEEDS OR CONCERNS AT THIS TIME. BED IN LOWEST POSITION. CALL LIGHT IN REACH. WILL CONTINUE TO MONITOR.
[2016-12-01 08:14] LABS: ALBUMIN 3.1 g/dL (3.4-5.0); ANION GAP 12.5 mmol/L (8-16); BILIRUBIN - TOTAL 0.19 mg/dL (0.2-1.3); CALCIUM 8.4 mg/dL (8.5-10.1); CARBON DIOXIDE 27.9 mmol/L (21.0-32.0); CREATININE - SERUM 0.9 mg/dL (0.6-1.3); POTASSIUM - SERUM 4.4 mmol/L (3.5-5.1); PROTEIN - SERUM 6.5 g/dL (6.4-8.2)
[2016-12-01 16:24] VITALS: BP 178/100
[2016-12-01 19:00] VITALS: BP 181/109
--- NOTE | 2016-12-01 21:34 | NUR ---
PT AWAKE, ALERT, ORIENTED, LYING IN BED, HOB 35 DEGREES, REQUESTING DILAUDID BOLUS. THE ORDER HAS FALLEN OFF PTS EMAR (TIMED OUT), SO I HAVE PAGED DR. CRAIG TO RESTART ORDER. PT DENIES ANY OTHER NEEDS. CONTINUE TO MONITOR CLOSELY. BED LOW, CALL LIGHT IN REACH, SIDE RAILS X 2.
--- NOTE | 2016-12-01 21:39 | NUR ---
DR. CRAIG DID RETURN PAGE AND AUTHORIZED THE RESTART OF PTS DISTRIBUTION AGENT DILAUDID WITH PRN BOLUSES.
[2016-12-02] VITALS: BP 175/99
--- NOTE | 2016-12-02 00:37 | NUR ---
PT CALLED REQUESTING HER FORKLIFT OPERATOR BOLUS OF DILAUDID, 2 VANILLA PUDDINGS, 2 CHOCOLATE PUDDINGS AND 1 CUP OF ICE TO ADD TO HER CRYSTAL LIGHT DRINK MIXTURES. PT DENIES ANY OTHER NEEDS. CONTINUE TO MONITOR.
[2016-12-02 04:00] VITALS: BP 185/110
--- NOTE | 2016-12-02 06:00 | NUR ---
DURING PTS LINE DRAW THIS A.M. I NOTICED WHAT LOOKED LIKE LARGE AMOUNTS OF FAT IN THE SYRINGES. PTS PORT IS ALSO DIFFICULT TO DRAW FROM. PT STATES SHE HAS ALSO HAD HYPOGLYCEMIA IN THE PAST. PT WOULD LIKE A COMPLETE LAB WORKUP TO CHECK HER CHOLESTEROL AND GLUCOSE. PT STATES TYPE 2 DIABTES RUNS IN HER FAMILY.
[2016-12-02 06:31] LABS: HEMATOCRIT 31.1 % (36.0-48.0); HEMOGLOBIN 8.8 g/dL (12-16); MCH 24.4 pg (26.0-34.0); MCHC 28.3 g/dL (31.0-37.0); MEAN PLATELET VOLUME 10.2 fL (7.4-10.4); RBC 3.6 10x6/uL (4.00-5.40); RDW 24.5 % (11.5-14.5); WBC 12.3 10x3/uL (4.8-10.8)
[2016-12-02 06:33] LABS: MCV 86.4 fL (80.0-100.0)
--- NOTE | 2016-12-02 07:30 | NUR ---
RECEIVED REPORT. ASSUMED CARE OF PATIENT. CALL LIGHT WITHIN REACH. SITTING UP IN BED WITH ATTENTION TOWARD TELEVISION. BOLUS REQUESTED VIA SUPERVISOR STEEL DIVISION AND ADMINISTERED BY NIGHT NURSE AT THIS TIME. RESP EVEN AND UNLABORED. NO DISTRESS.
[2016-12-02 07:40] LABS: ANION GAP 15.4 mmol/L (8-16); CALCIUM 8.8 mg/dL (8.5-10.1); CARBON DIOXIDE 25.8 mmol/L (21.0-32.0); POTASSIUM - SERUM 4.2 mmol/L (3.5-5.1)
[2016-12-02 08:00] VITALS: BP 172/106
--- NOTE | 2016-12-02 10:48 | NUR ---
BOLUS DOSE ADMINISTERED VIA COPY CAMERA OPERATOR AT THIS TIME. NO DISTRESS.
[2016-12-02 12:50] VITALS: BP 177/104
--- NOTE | 2016-12-02 13:51 | NUR ---
BOLUS DOSE DELIVERED AT THIS TIME VIA CASTING HOUSE LABORER. NO DISTRESS.
--- NOTE | 2016-12-02 16:44 | NUR ---
MEDICATED FOR PAIN WITH BOLUS VIA LEATHER GRAINER AT THIS TIME.
[2016-12-02 20:00] VITALS: BP 173/110
--- NOTE | 2016-12-02 20:16 | NUR ---
PT LYING IN BED AWAKE, ALERT, ORIENTED, DAUGHTER IN ROOM. PT DENIES ANY NEEDS AT THIS TIME. WILL MAKE PT NPO AFTER MIDNIGHT PER ORDER FOR UPCOMING SURGERY. PT UNDERSTANDS THIS. CONTINUE TO MONITOR CLOSELY.
[2016-12-03 04:00] VITALS: BP 181/105
--- NOTE | 2016-12-03 08:15 | NUR ---
PT RESTING IN BED WITH EYES OPEN CALL LIGHT IN REACH NO PROBLEMS WILL MONITER
[2016-12-03 08:21] VITALS: BP 171/108
--- NOTE | 2016-12-03 08:23 | NUR ---
PT AMBULATED TO BR AND SLIPPED. NO APPARENT INJURY NOTED. INFUSAPORT PULLED OUT.
--- NOTE | 2016-12-03 08:25 | NUR ---
PT INSTRUCTED TO USE CALL LIGHT. NON SLIP SOCKS ON.
[2016-12-03 11:51] VITALS: BP 182/116
[2016-12-03 17:11] VITALS: BP 190/114
[2016-12-03 21:25] VITALS: BP 151/92
--- NOTE | 2016-12-04 00:40 | NUR ---
FOOD SERVICE HELPER AT BEDSIDE FOR VS. NEEDS ADDRESSED AT THIS TIME. CALL LIGHT IN REACH. WILL CONT TO MONITOR.
[2016-12-04 01:00] VITALS: BP 187/112
--- NOTE | 2016-12-04 01:57 | NUR ---
SIT UP IN BED AND WATCH IPAD.
--- NOTE | 2016-12-04 01:59 | NUR ---
REST QUIETLY IN BED WITH EYE CLOSE, BED LOW CALL LIGHT WITHIN REACH.
--- NOTE | 2016-12-04 03:10 | NUR ---
PT CALL FOR ISABEL, STATE SHE CUT HERSELF IN LEG WHEN SHAVE HAIR IN LEG PREPARE FOR TOMORROW SURGERY.
[2016-12-04 04:00] VITALS: BP 161/86
--- NOTE | 2016-12-04 04:19 | NUR ---
GIVEN CANOPY STRINGER BOLUS DILAUDID 0.6MG, SUPPERVISED BY MOLLY. Nick HARDING
[2016-12-04 06:44] LABS: BASOPHILS 0.1 % (0-2); EOSINOPHILS 0 % (0-7); HEMATOCRIT 31.1 % (36.0-48.0); HEMOGLOBIN 9.2 g/dL (12-16); IMMATURE GRANULOCYTES 1.8 % (0-5); LYMPHOCYTES 11.5 % (15-50); MCH 24.6 pg (26.0-34.0); MCHC 29.6 g/dL (31.0-37.0); MEAN PLATELET VOLUME 9.2 fL (7.4-10.4); MONOCYTES 3.8 % (2-11); NEUTROPHILS 82.8 % (40-80); PLATELET COUNT 441 10x3/uL (130-400); RBC 3.74 10x6/uL (4.00-5.40); WBC 15.3 10x3/uL (4.8-10.8)
--- NOTE | 2016-12-04 07:00 | NUR ---
RECEIVED REPORT. ASSUMED CARE OF PATIENT. CALL LIGHT WITHIN REACH. REQUESTING BOLUS AT THIS TIME. NO DISTRESS. RESP EVEN AND UNLABORED. NS INFUSING AT 30 FOR ACCOUNTING ASSISTANT.
[2016-12-04 07:02] LABS: MCV 83.2 fL (80.0-100.0)
[2016-12-04 07:05] LABS: ALBUMIN 3.7 g/dL (3.4-5.0); ANION GAP 14.9 mmol/L (8-16); BILIRUBIN - TOTAL 0.22 mg/dL (0.2-1.3); CALCIUM 9.2 mg/dL (8.5-10.1); CARBON DIOXIDE 25.7 mmol/L (21.0-32.0); CREATININE - SERUM 0.9 mg/dL (0.6-1.3); POTASSIUM - SERUM 4.6 mmol/L (3.5-5.1); PROTEIN - SERUM 7.8 g/dL (6.4-8.2)
--- NOTE | 2016-12-04 07:23 | NUR ---
BOLUS DOSE ADMINISTERED VIA GAMBRELER PUMP AT THIS TIME. NO DISTRESS.
[2016-12-04 08:00] VITALS: BP 166/113
--- NOTE | 2016-12-04 10:47 | NUR ---
NEW SYRINGE PLACED TO LICENSE REGISTRATION EXAMINER PUMP AT THIS TIME. NO DISTRESS.
[2016-12-04 12:00] VITALS: BP 179/108
--- NOTE | 2016-12-04 13:12 | NUR ---
REPORT CALLED TO [facility]. PATIENT IS BEING TRANSFERRED TO ROOM 2240.
--- NOTE | 2016-12-04 14:06 | NUR ---
PT RECIEVED FROM MED 2. EMILIE MAT APPLIED TO BED AND ALARM BOX OUT OF REACH OF PT. INSTRUCTED ON USE OF CALL LIGHT TO CALL FOR ASSISTANCE TO GET UP DUE TO SAFETY CONCERNS. CALL LIGHT IN REACH
[2016-12-04 16:06] VITALS: BP 154/97
--- NOTE | 2016-12-04 18:16 | NUR ---
NO COMPLAINTS AT PRESENT. STATES SOME RELIEF OF PAIN-HOPING FOR SURGERY TOMORROW. CALL LIGHT IN REACH. EMILIE MAT ALARM ON AND ACTIVE.
[2016-12-04 20:00] VITALS: BP 139/84
--- NOTE | 2016-12-04 21:10 | NUR ---
PT HS MEDS ADMINISTERED. PT DENIES FURTHER NEEDS. WCTM.
[2016-12-05] VITALS: BP 142/88
[2016-12-05 04:00] VITALS: BP 144/83
--- NOTE | 2016-12-05 05:00 | NUR ---
PT RESTING IN BED. PT EXPERIENCING ANXIETY ABOUT TODAY'S SURGERY. TALKED WITH PT AND GAVE BOLUS DOSE OF DILAUDID REQUESTED BY PT.
[2016-12-05 05:20] LABS: BASOPHILS 0.1 % (0-2); EOSINOPHILS 0 % (0-7); HEMATOCRIT 31.3 % (36.0-48.0); HEMOGLOBIN 9.5 g/dL (12-16); IMMATURE GRANULOCYTES 1.2 % (0-5); LYMPHOCYTES 10.3 % (15-50); MCH 25.5 pg (26.0-34.0); MCHC 30.4 g/dL (31.0-37.0); MCV 83.9 fL (80.0-100.0); MEAN PLATELET VOLUME 9.8 fL (7.4-10.4); MONOCYTES 4.1 % (2-11); NEUTROPHILS 84.3 % (40-80); PLATELET COUNT 448 10x3/uL (130-400); RBC 3.73 10x6/uL (4.00-5.40); RDW 23.9 % (11.5-14.5); WBC 11.6 10x3/uL (4.8-10.8)
[2016-12-05 06:45] LABS: ALBUMIN 3.4 g/dL (3.4-5.0); ANION GAP 12.8 mmol/L (8-16); BILIRUBIN - TOTAL 0.2 mg/dL (0.2-1.3); CARBON DIOXIDE 27.1 mmol/L (21.0-32.0); POTASSIUM - SERUM 4.9 mmol/L (3.5-5.1); PROTEIN - SERUM 6.9 g/dL (6.4-8.2)
--- NOTE | 2016-12-05 07:30 | NUR ---
RECIEVED PT DURING WAKLING ROUNDS, PT RESTING IN BED WITH COMPLAINTS OF PAIN OF A 6 ON A SCALE OF 1-10. DEPARTMENT CLINICIAN IN USE. ASSESSMENT DONE PER FLOWSHEET. BED IN LOW POSITION AND CALL LIGHT WITHIN REACH. WILL CONTINUE TO MONITOR.
--- NOTE | 2016-12-05 08:15 | NUR ---
BOLUS DOSE GIVEN PER ORDER AT THIS TIME OF DILAUDID CONVENTIONS ASSISTANT. WILL CONTINUE TO MONITOR.
[2016-12-05 08:51] VITALS: BP 156/85
--- NOTE | 2016-12-05 10:02 | NUR ---
CENTRAL LINE DRESSING CHANGED PER PROTOCOL USING STERILE TECHNIQUE. WILL CONTINUE TO MONITOR.
[2016-12-05 13:12] VITALS: BP 146/79
--- NOTE | 2016-12-05 14:06 | NUR ---
NUTRITION MONITORING & EVAL CHART REVIEWED, PT VISIT. ASSISTED WITH MENU SELECTIONS. PT NPO FOR SURGERY. RD FOLLOWING
--- NOTE | 2016-12-05 14:22 | NUR ---
CM REASSESSMENT NOTE: CM SPOKE WITH PATIENT REGARDING HER PLANS FOR DISCHARGE OR ANY NEEDS SHE MIGHT HAVE. PATIENT STATED SHE DOES NOT WANT TO GO TO A SKILLED FACILITY BECAUSE SHE HAS HELP DAILY FROM [facility] AND CAN HAVE RESPITE CARE ON WEEKENDS NOW FROM [facility]. PATIENT STATED THAT SHE HAS AN AUNT ACROSS THE STREET THAT IF SHE NEEDED ANYTHING SHE COULD CALL ON HER ANYTIME. PATIENT DID NOT WANT TO DISCUSS ANY OTHER ALTERNATIVES FOR HER CARE. CM WILL CONTINUE TO FOLLOW PATIENT WITH D/C NEEDS AND PLANS.
[2016-12-05 14:50] VITALS: BP 139/82
[2016-12-05 20:00] VITALS: BP 137/72
--- NOTE | 2016-12-05 20:00 | NUR ---
AWAKE,ALERT.UP AMBULATING IN ROOM. IV INFUSING TO RIGHT PORT WITHOUT REDNESS OR EDEMA NOTED. SEQUINS SLINGER DILAUDID IN USE FOR PAIN CONTRO. CL IN REACH.
[2016-12-06] VITALS (12 sets, daily range): BP systolic 117–150; BP diastolic 68–96
--- NOTE | 2016-12-06 02:44 | NUR ---
EYES CLOSED.RESP EVEN AND UNALBORED. NO DISTRESS.NOTED.
--- NOTE | 2016-12-06 05:19 | NUR ---
PT IS ASLEEP WITH THE FAN BLOWING ON THEM. RESPIRATIONS ARE EVEN AND UNLABORED. THE BED IS LOW, RAILS UP X'S 2 WITH THE CALL LIGHT AT HAND.
[2016-12-06 05:44] LABS: BASOPHILS 0.1 % (0-2); EOSINOPHILS 0.1 % (0-7); HEMOGLOBIN 8.6 g/dL (12-16); IMMATURE GRANULOCYTES 0.6 % (0-5); MCH 24.9 pg (26.0-34.0); MCHC 29.7 g/dL (31.0-37.0); MCV 84.1 fL (80.0-100.0); MEAN PLATELET VOLUME 9.9 fL (7.4-10.4); MONOCYTES 4.4 % (2-11); NEUTROPHILS 85.8 % (40-80); PLATELET COUNT 371 10x3/uL (130-400); RBC 3.45 10x6/uL (4.00-5.40); RDW 24.6 % (11.5-14.5); WBC 12.4 10x3/uL (4.8-10.8)
[2016-12-06 06:05] LABS: ALBUMIN 3.1 g/dL (3.4-5.0); ANION GAP 14.3 mmol/L (8-16); BILIRUBIN - TOTAL 0.1 mg/dL (0.2-1.3); CALCIUM 8.6 mg/dL (8.5-10.1); CARBON DIOXIDE 25.7 mmol/L (21.0-32.0); PROTEIN - SERUM 6.4 g/dL (6.4-8.2)
--- NOTE | 2016-12-06 07:05 | NUR ---
PATIENT OFF FLOOR TO SURGERY VIA BED
--- NOTE | 2016-12-06 10:55 | NUR ---
PATIENT BACK TO ROOM FROM PACU. RESTING QUIETLY WITH EYES CLOSED. WAKES EASY. VITAL SIGNS STABLE. SIDE RAILS UP X2. BED IN LOW POSITION. CALL LIGHT IN REACH. EMILIE ALARM ON.
--- NOTE | 2016-12-06 13:45 | NUR ---
C/O PAIN 03/19. BOLUS VIA HELMET COVERER PER ORDERS. NO FURTHER NEEDS VOICED. SIDE RAILS UP X2. BED IN LOW POSITION. CALL LIGHT IN REACH. EMILIE ALARM ON.
--- NOTE | 2016-12-06 17:45 | NUR ---
ALERT IN BED. 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 ASSISTED UP TO BSC SBA. CALL LIGHT IN REACH. INSTRUCTED TO CALL FOR ASSIST ONCE FINISHED. STATES UNDERSTANDING.
--- NOTE | 2016-12-06 20:00 | NUR ---
ASSESSMENT COMPLETED, NO ACUTE DISTRESS NOTED, IV INFUSING TO R CHEST PORT, CONT POX IN PLACE ALONG WITH CONTINUOUS BLOCK, EMILIE ALARM ON, SR'S UP, CL IN REACH, WILL MONITOR
--- NOTE | 2016-12-06 21:26 | NUR ---
DILAUDID BOLUS GIVEN PER REQUEST, ERNESTO WELL, CL IN REACH
--- NOTE | 2016-12-06 23:49 | NUR ---
SITTING UP IN BED WATCHING TV, SNACKS AND ICE PROVIDED PER REQUEST, DENIES OTHER NEEDS AT THIS TIME, SR'S UP, CL IN REACH
[2016-12-07] VITALS: BP 130/77
--- NOTE | 2016-12-07 00:59 | NUR ---
DILAUDID BOLUS GIVEN PER REQUEST FOR PAIN, ERNESTO WELL, FALL PRECAUTIONS IN PLACE, REFUSES BED ALARM, WAIVER SIGNED, CL IN REACH
--- NOTE | 2016-12-07 02:35 | NUR ---
PRN VALIUM AND ZOFRAN GIVEN FOR ANXIETY AND NAUSEA, ERNESTO WELL, DENIES OTHER NEEDS AT THIS TIME, REFUSES EMILIE ALARM, RELEASE SIGNED, SR'S UP, CL IN REACH
[2016-12-07 04:00] VITALS: BP 133/87
--- NOTE | 2016-12-07 04:26 | NUR ---
PRN MAGNAFLUX OPERATOR BOLUS GIVEN PER REQUEST, UP TO BSC, LABS DRAWN, PORT FLUSHED WITH 10 CC NS, DENIES OTHER NEEDS AT THIS TIME, SR'S UP, CL IN REACH
[2016-12-07 05:15] LABS: BASOPHILS 0.1 % (0-2); EOSINOPHILS 0 % (0-7); HEMATOCRIT 29.7 % (36.0-48.0); HEMOGLOBIN 8.7 g/dL (12-16); IMMATURE GRANULOCYTES 0.5 % (0-5); LYMPHOCYTES 6.7 % (15-50); MCH 25.1 pg (26.0-34.0); MCHC 29.3 g/dL (31.0-37.0); MCV 85.8 fL (80.0-100.0); MEAN PLATELET VOLUME 9.9 fL (7.4-10.4); MONOCYTES 4.7 % (2-11); PLATELET COUNT 348 10x3/uL (130-400); RBC 3.46 10x6/uL (4.00-5.40); RDW 25.6 % (11.5-14.5); WBC 10.8 10x3/uL (4.8-10.8)
[2016-12-07 05:39] LABS: BILIRUBIN - TOTAL 0.14 mg/dL (0.2-1.3); CALCIUM 8.4 mg/dL (8.5-10.1); CARBON DIOXIDE 25.9 mmol/L (21.0-32.0); CREATININE - SERUM 1.2 mg/dL (0.6-1.3); POTASSIUM - SERUM 4.9 mmol/L (3.5-5.1); PROTEIN - SERUM 6.2 g/dL (6.4-8.2)
--- NOTE | 2016-12-07 07:00 | NUR ---
PT REC'D FROM [facility]. PT RESTING IN BED HAVING BREAKFAST. AAOX4. DRESSING TO L SHOULDER CDI. RATING CURRENT PAIN IN L SHOULDER 12/17. REMINDED PT OF FENTYNL AND DILAUDID TAPER MACHINE'S. BED LOW, CALL LIGHT IN REACH, DENIES NEEDS. CPOC.
--- NOTE | 2016-12-07 07:38 | NUR ---
PATIENT IS AWAKE, ALERT AND ORIENTED X'S 4. RESPIRATIONS ARE EVEN UNLABORED ON ROOM AIR. PATIENT REQUESTED WIPES. BROUGHT PATIENT WIPES. PATIENT DENIES FURTHER NEEDS.
[2016-12-07 08:42] VITALS: BP 159/99
--- NOTE | 2016-12-07 09:45 | NUR ---
MORNING MEDS ADMINISTERED AT THIS TIME. PT GETTING UP AND READY TO AMBULATE WITH PHYSICAL THERAPY.
--- NOTE | 2016-12-07 10:18 | NUR ---
PRN BOLUS DOSE ADMINISTERED PER PT COMPLAINTS OF 10/10 SHOULDER PAIN. WILL REASSESS.
[2016-12-07 12:52] VITALS: BP 149/90
--- NOTE | 2016-12-07 14:24 | NUR ---
Nutrition Follow Up: Pt is eating 100% meal avg on a regular diet. +BM 12/05/16. Meds and labs reviewed. Rec continue current diet. RD following.
--- NOTE | 2016-12-07 14:24 | NUR ---
SPOKE WITH JOYCE, FROM ANESTHESIA, ABOUT FENTYNL BONDING MACHINE OPERATOR. STATED I COULD TURN IT OFF AND SOMEONE WOULD COME PULL IT.
--- NOTE | 2016-12-07 15:29 | NUR ---
PRN COMMUNITY ENGAGEMENT COORDINATOR BOLUS ADMINISTERED PER PT COMPLAINTS OF 10/10 L SHOULDER PAIN. WILL REASSESS. COMMUNITY ENGAGEMENT COORDINATOR SYRINGE ALSO CHANGED AT THIS TIME.
[2016-12-07 16:45] VITALS: BP 127/79
--- NOTE | 2016-12-07 17:36 | NUR ---
DR. CHILDS AT BEDSIDE. INTRASCALENE LINE PULLED. DC'D WITH TIP INTACT. BED LOW, CALL LIGHT IN REACH, DENIES NEEDS. CPOC.
--- NOTE | 2016-12-07 18:33 | NUR ---
ASSISTED PT WITH MEAL SET UP AND CLEANING UP CLUTTER AROUND ROOM. PRN FIORCET ADMINISTERED PER PT COMPLAINTS OF 10/10 HEADACHE. WILL REASSESS. BED LOW, CALL LIGHT IN REACH, DENIES NEEDS. CPOC.
[2016-12-07 20:00] VITALS: BP 124/72
[2016-12-08 04:00] VITALS: BP 130/68
[2016-12-08 05:31] LABS: BASOPHILS 0.1 % (0-2); EOSINOPHILS 0.1 % (0-7); HEMATOCRIT 33.8 % (36.0-48.0); IMMATURE GRANULOCYTES 0.7 % (0-5); LYMPHOCYTES 13.5 % (15-50); MCH 25.5 pg (26.0-34.0); MCHC 29.6 g/dL (31.0-37.0); MCV 86.2 fL (80.0-100.0); MEAN PLATELET VOLUME 9.9 fL (7.4-10.4); MONOCYTES 6.8 % (2-11); NEUTROPHILS 78.8 % (40-80); RBC 3.92 10x6/uL (4.00-5.40); RDW 26.6 % (11.5-14.5); WBC 10.4 10x3/uL (4.8-10.8)
[2016-12-08 05:33] LABS: PLATELET COUNT 261 10x3/uL (130-400)
[2016-12-08 05:46] LABS: ALBUMIN 3.1 g/dL (3.4-5.0); ANION GAP 13.6 mmol/L (8-16); BILIRUBIN - TOTAL 0.1 mg/dL (0.2-1.3); CALCIUM 8.2 mg/dL (8.5-10.1); CARBON DIOXIDE 25.7 mmol/L (21.0-32.0); CREATININE - SERUM 1.2 mg/dL (0.6-1.3); POTASSIUM - SERUM 4.3 mmol/L (3.5-5.1); PROTEIN - SERUM 6.4 g/dL (6.4-8.2)
--- NOTE | 2016-12-08 07:20 | NUR ---
ASSESSMENT COMPLETE. R PORT PATENT. 1/2NS INFUSING AT 75 CC/HR VIA PUMP. BURNER SHAFT DILAUDID 0.2-10-4 IN USE FOR PAIN CONTROL. DRESSING TO L SHOULDER C/D/I. SLING/IMMOBILIZER IN USE TO L SHOULDER.
[2016-12-08 08:35] VITALS: BP 134/65
--- NOTE | 2016-12-08 11:50 | NUR ---
COMPLAINING OF HEADACHE. FIORECET GIVEN.
[2016-12-08 12:01] VITALS: BP 126/76
[2016-12-08 16:13] VITALS: BP 131/78
--- NOTE | 2016-12-08 17:44 | NUR ---
DENIES ANY NEEDS AT PRESENT.
[2016-12-08 19:00] VITALS: BP 131/86
[2016-12-09] VITALS: BP 143/87
--- NOTE | 2016-12-09 02:13 | NUR ---
REC'D PATIENT LYING IN BED. ALERT AND ORIENTED X4. DENIED PAIN AT THIS TIME. DENIED FURTHER NEEDS AT THIS TIME. INSTRUCTED TO CALL IF NEEDED ANYTHING. VERBALIZED UNDERSTANDING. WILL ADMIN PM/AM MEDS PRESCRIBED. BED LOW, NE, CALL LIGHT IN REACH. WILL CONT TO MONITOR.
[2016-12-09 04:00] VITALS: BP 135/81
[2016-12-09 05:14] LABS: BASOPHILS 0 % (0-2); EOSINOPHILS 0.1 % (0-7); HEMATOCRIT 29.8 % (36.0-48.0); HEMOGLOBIN 8.6 g/dL (12-16); IMMATURE GRANULOCYTES 0.8 % (0-5); LYMPHOCYTES 6.9 % (15-50); MCH 25.4 pg (26.0-34.0); MCHC 28.9 g/dL (31.0-37.0); MCV 87.9 fL (80.0-100.0); MEAN PLATELET VOLUME 10.5 fL (7.4-10.4); MONOCYTES 2.1 % (2-11); NEUTROPHILS 90.1 % (40-80); RBC 3.39 10x6/uL (4.00-5.40); WBC 11.8 10x3/uL (4.8-10.8)
[2016-12-09 05:20] LABS: PLATELET COUNT 329 10x3/uL (130-400)
[2016-12-09 05:32] LABS: ALBUMIN 3.1 g/dL (3.4-5.0); ANION GAP 13.2 mmol/L (8-16); BILIRUBIN - TOTAL 0.1 mg/dL (0.2-1.3); CALCIUM 8.3 mg/dL (8.5-10.1); CREATININE - SERUM 1.1 mg/dL (0.6-1.3); POTASSIUM - SERUM 4.2 mmol/L (3.5-5.1); PROTEIN - SERUM 6.5 g/dL (6.4-8.2)
--- NOTE | 2016-12-09 07:45 | NUR ---
ASSESSMENT COMPLETE. R PORT PATENT. /2 NS INFUSING AT 75 CC/HR VIA PUMP. TEST ENGINEER DILAUDID 0.2-10-4 IN USE FOR PAIN CONTROL. DRESSING C/D/I TO L SHOULDER. IMMOBILIZER/SLING IN USE TO L SHOULDER.
[2016-12-09 08:14] VITALS: BP 129/75
--- NOTE | 2016-12-09 12:00 | NUR ---
NO CHANGES NOTED AT PRESENT.
[2016-12-09 13:10] VITALS: BP 128/76
--- NOTE | 2016-12-09 17:32 | NUR ---
NO CHANGES NOTED AT PRESENT.
[2016-12-09 20:00] VITALS: BP 129/80
--- NOTE | 2016-12-09 22:06 | NUR ---
REC'D PATIENT LYING IN BED RESTING. ALERT AND ORIENTED X4. STATED PAIN WAS 9/10. WILL ADMIN PM/AM MEDS PRESCRIBED. DENIED FURTHER NEEDS AT THIS TIME. NO DISTRESS NOTED. INSTRUCTED TO CALL IF NEEDED ANYTHING. VERBALIZED UNDERSTANDING. BED LOW, LOCKED, CALL LIGHT IN REACH.
--- NOTE | 2016-12-10 02:00 | NUR ---
PT IN BED WITH NO DISTRESS. LEFT SHOULDER DRESSING C/D/I. RIGHT PORT WITH FLUIDS RUNNING PER ORDER. SIDE RAILS X 2. BED LOW. CALL LIGHT IN REACH.
[2016-12-10 04:00] VITALS: BP 134/58
--- NOTE | 2016-12-10 07:35 | NUR ---
LYING IN BED WATCHING TV, BED LOWEST POSITION, CALL LIGHT IN REACH, DENIES NEEDS, WILL CONTINUE TO MONITOR
[2016-12-10] MEDS ORDERED: CLEOCIN HCL300 MG PO ×2 (08:24→12:17)
[2016-12-10] MEDS ORDERED: DILAUDID8 MG PO (08:25)
[2016-12-10 09:28] VITALS: BP 155/98
--- NOTE | 2016-12-10 10:17 | NUR ---
CM REASSESSMENT NOTE: PATIENT IS DISCHARGING HOME TODAY/PATIENTS CG WILL DRIVE HER HOME TODAY/SUPERIOR IS HER CAREGIVER-HOME HEALTH. PATIENT WILL HAVE RESPITE CARE NOW ON WEEKENDS PER PATIENT. PATIENT IS NOTIFYING HER FOAM TANK LAMINATOR TIME TO PICK HER UP.
[2016-12-10 12:16] VITALS: BP 130/82
[2016-12-10] MEDS ORDERED: DIFLUCAN150 MG PO (12:17)
[2016-12-10] MEDS ORDERED: HYDROCODONE-APA1 TAB PO (12:17)
--- NOTE | 2016-12-10 13:20 | NUR ---
DE-ACCESSED PT PORT AT THIS TIME PER PROTOCOL. PT PREPARING FOR DISCHARGE. BED IN LOW POSITION AND CALL LIGHT WITHIN REACH. WILL CONTINUE TO MONITOR.
--- NOTE | 2016-12-10 14:00 | NUR ---
DISCHARGE PAPERS AND INSTRUCTIONS GIVEN, QUESTIONS ANSWERED, DISCHAREGED WITH BELONGINGS PER WC
[2016-12-12 17:10] LABS: AEROBE ID Preliminary report (())
== END 2016-12-10 14:50 | disposition home health service (06) | DRG 483 ==
LOC: D.ER 12:42 → D.MS 18:50 → D.M2 18:50 → D.MS 12-04 13:56
PROVIDERS: Emergency Medicine; Family Medicine; Orthopaedic Surgery; ADMIT Family Medicine Adult Medicine
PROC: 0RRJ00Z Replacement of Right Shoulder Joint with Reverse Ball and Socket Synthetic Substitute, Open Approach (ICD-10-PCS; principal; 2016-12-06 07:30)
PROC: 0RPJ08Z Removal of Spacer from Right Shoulder Joint, Open Approach (ICD-10-PCS; principal; 2016-12-06 07:30)
DX: M06.9 Rheumatoid arthritis, unspecified (principal); T84.038A Mechanical loosening of other internal prosthetic joint, initial encounter; D62 Acute posthemorrhagic anemia; W19.XXXA Unspecified fall, initial encounter; Z86.73 Personal history of transient ischemic attack (TIA), and cerebral infarction without residual deficits; F41.9 Anxiety disorder, unspecified; F43.10 Post-traumatic stress disorder, unspecified; S42.141D Displaced fracture of glenoid cavity of scapula, right shoulder, subsequent encounter for fracture with routine healing; B37.2 Candidiasis of skin and nail; D50.9 Iron deficiency anemia, unspecified